=== PATIENT | male | born 1990 | race Caucasian/White ===

== ENCOUNTER 2022-12-20 16:29 | Observation (INO) ==
[2022-12-20 17:06] LABS: Basophils # (auto) 0.04 K/uL (0-0.2); Basophils % (auto) 0.5 %; Eosinophils # (auto) 0.14 K/uL (0-0.50); Eosinophils % (auto) 1.7 %; Hematocrit (blood only) 42.8 % (42.0-52.0); Hemoglobin 14.6 g/dl (14.0-18.0); Immature Granulocytes # (auto) 0.01 K/uL (0.01-0.20); Immature Granulocytes % (auto) 0.1 %; Lymphocytes # (auto) 1.24 K/uL (1.2-3.4); Lymphocytes % (auto) 15.2 %; Mean Corpuscular Hemoglobin 29.9 pg (25.0-34.0); Mean Corpuscular Hgb Conc 34.1 g/dL (32.0-36.0); Mean Corpuscular Volume 87.5 fL (80.0-100.0); Mean Platelet Volume 10.7 fL (9.4-12.4); Monocytes # (auto) 0.84 K/uL (0.11-0.59); Monocytes % (auto) 10.3 %; Neutrophils % (auto) 72.2 %; Platelet Count 239 K/uL (130-400); RDW Coefficient of Variation 13.2 % (11.5-14.5); RDW Standard Deviation 42.2 fL (36.4-46.3); Red Blood Count 4.89 M/uL (4.70-6.10); White Blood Count 8.17 K/ul (4.8-10.8)
[2022-12-20 17:22] LABS: Albumin Globulin Ratio 1.4 (0.9-2); Albumin Level 4.6 gm/dl (3.4-5.0); BUN Creatinine Ratio 15.9 (10-20); Calcium 9.5 mg/dl (8.6-10.3); Creatinine Clr Calc Pharmacy 113.1 ml/min; Est GFR (African American) 104.4 ml/min; Est GFR (Non-African American) 90.1 ml/min; Globulin 3.2 gm/dl (2.5-4.0); Potassium 3.7 mmol/L (3.5-5.1); Total Protein 7.8 gm/dl (6.0-8.3)
[2022-12-20 17:34] LABS: INR 1.1 (0.9-1.1); Partial Thromboplastin Ratio 1.1; Partial Thromboplastin Time 29.9 Seconds (21.0-31.0); Prothrombin Time 11.9 Seconds (9.0-12.0)
--- NOTE | 2022-12-20 17:40 | Emergency Department Note ---
Impression & Plan DVT (deep venous thrombosis) ADMIT ED Provider Note HPI: The patient is a 32-year-old gentleman who presents emergency department chief complaint of increasing left lower extremity pain today with ambulation. Patient was diagnosed with DVT yesterday after visiting the emergency department. Patient was started on Eliquis and states he was given a dose yesterday before he left the ER and took another dose again this morning. He is taking it as prescribed. Patient denies any chest pain or shortness of breath. States he gets a cramping and burning type pain radiating through his left leg mostly with ambulation. He states this acutely worsened about an hour prior to arrival to the ED. On arrival here to the ED the patient is hemodynamically stable, he is in no acute distress on my initial assessment. He has a palpable dorsalis pedis pulse in the left lower extremity. ROS: - Per HPI *Outpatient medications and allergy history reviewed. *Pertinent external medical records reviewed. PE: General: Alert HEENT: Normocephalic, trachea midline Eyes: Extraocular eye movement is intact, no scleral erythema Pulmonary: Clear to auscultation bilaterally, no wheezing Cardio: Regular rate and rhythm GI: Abdomen is soft to palpation : No suprapubic tenderness MSK: No evidence of trauma or malformation of the extremities, there is moderate swelling of the left lower extremity in comparison to the right, minimal associated erythema in the left lower extremity in comparison to the right, there is a palpable dorsalis pedis pulse on the left side and motor and sensory function is intact distally in the left foot Skin: No evidence of rash Neuro: Alert, no focal deficits 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 Medical Decision Making: Patient presented to the emergency department with worsening left lower extremity pain in the setting of recently diagnosed DVT of the left common femoral artery with some extension into the inferior vena cava. On arrival here to the ED the patient is hemodynamically stable but does complain of some worsening left lower extremity pain. Patient does have motor and sensory function intact distally in the left lower extremity on arrival. He denies any chest pain or shortness of breath. IV established, lab work obtained, patient was placed on coating mixer, ultra sound imaging from yesterday reviewed did show evidence of DVT that was occlusive in the left common femoral vein with extension into the inferior vena cava. Obtained today does not show any evidence of leukocytosis, hemoglobin is stable, CMP does not show any critical findings, troponin is negative, EKG shows normal sinus rhythm with a rate of 72. Given the extent of the clot burden on ultrasound imaging I did obtain CT angiography of the chest that does not show any evidence of acute PE. Case was discussed with on-call anticoagulation specialist, Dr. Long, recommends admission given clot burden for observation and possibly hematology consultation. Patient tells me that he did have recent travel to [place] from [place] several weeks ago but he got out of the car frequently and ambulated, unclear if this could have been a provoking event. I discussed the above findings with the on-call hospitalist, Dr. Chavez, recommended vascular surgery consultation be obtained to determine whether or not the patient may require an IVC filter. We do not have vascular surgery on-call this evening at this hospital therefore I did discuss the case with on-call vascular surgery at [facility], Dr. Pastor, who states the patient can remain here at [facility] and be anticoagulated routinely without indication for filter placement. On reevaluation patient is resting comfortably in bed, he is in agreement for admission. Patient was placed for admission in stable condition. Consultants: -Hospitalist service, Dr. Chavez -Anticoagulation specialist, Dr. Law -Vascular surgery at [facility], Dr. Pastor Disposition discussion held by myself with: Patient Diagnosis: 1. DVT of left lower extremity, occlusive, left common femoral vein, extending into inferior vena cava 2. Left lower extremity pain, acute Disposition: Admission Albino Ya DO Emergency Medicine Past Med/Surg History Social History Smoking Status: Never smoker Feels Safe at Home: Yes Allergies Allergies Allergy/AdvReac Type Severity Reaction Status Date / Time Penicillins Allergy Intermediate RASH/HIVES Verified 12/20/22 18:45 A CHILD ibuprofen AdvReac Unknown CONTRAINDICATED Verified 12/20/22 18:45 WITH ELIQUIS Home Meds Home Medications Medication Instructions Recorded Confirmed acetaminophen 500 mg tablet 1,000 mg PO DIRECTED PRN 12/20/22 12/20/22 (Tylenol Extra Strength) PAIN/FEVER Previous Rx's Medication Instructions Recorded apixaban 5 mg (74 tabs) tablets in See Rx Instructions .Route 12/19/22 a dose pack (Eliquis) .COMPLEX #74 ea Results & Data (ED) Vital Signs Vital Signs - 24 hr 12/20/22 16:33 12/20/22 17:31 12/20/22 18:00 Temperature 36.7 C Temperature Source Temporal Artery Scan Pulse Rate 89 75 Pulse Rate [Right Apical] 83 Pulse Rate from SpO2 Sensor 75 Respiratory Rate 18 14 14 Respiratory Effort / Characteristics Non-Labored Non-Labored Spontaneous Respiratory Depth Normal Normal Respiratory Pattern Regular Blood Pressure 131/81 124/80 Blood Pressure [Left Arm] 123/82 Blood Pressure Mean 97 94 Blood Pressure Mean [Left Arm] 95 Blood Pressure Position Sitting Pulse Oximetry 100 100 100 Oxygen Delivery Method Room Air Room Air Room Air Sepsis Recent Fever Within 48 Hours No Sepsis New/Unexplained Change in Mental Status No Sepsis Action Taken by Nursing No Action Required 12/20/22 18:30 12/20/22 19:02 12/20/22 19:30 Temperature Temperature Source Pulse Rate 84 75 85 Pulse Rate [Right Apical] Pulse Rate from SpO2 Sensor 83 86 Respiratory Rate 15 16 Respiratory Effort / Characteristics Respiratory Depth Respiratory Pattern Blood Pressure 129/76 131/76 126/68 Blood Pressure [Left Arm] Blood Pressure Mean 93 94 87 Blood Pressure Mean [Left Arm] Blood Pressure Position Pulse Oximetry 100 100 100 Oxygen Delivery Method Room Air Room Air Room Air Sepsis Recent Fever Within 48 Hours Sepsis New/Unexplained Change in Mental Status Sepsis Action Taken by Nursing 12/20/22 20:00 12/20/22 20:30 12/20/22 21:00 Temperature Temperature Source Pulse Rate 78 83 83 Pulse Rate [Right Apical] Pulse Rate from SpO2 Sensor 79 84 82 Respiratory Rate 14 17 16 Respiratory Effort / Characteristics Respiratory Depth Respiratory Pattern Blood Pressure 126/68 122/72 117/74 Blood Pressure [Left Arm] Blood Pressure Mean 87 88 88 Blood Pressure Mean [Left Arm] Blood Pressure Position Pulse Oximetry 99 99 100 Oxygen Delivery Method Room Air Room Air Room Air Sepsis Recent Fever Within 48 Hours Sepsis New/Unexplained Change in Mental Status Sepsis Action Taken by Nursing 12/20/22 21:30 12/20/22 17:41 12/20/22 21:40 Temperature Temperature Source Pulse Rate 93 H 72 88 Pulse Rate [Right Apical] Pulse Rate from SpO2 Sensor 96 H Respiratory Rate 20 Respiratory Effort / Characteristics Respiratory Depth Respiratory Pattern Blood Pressure 131/76 Blood Pressure [Left Arm] Blood Pressure Mean 94 Blood Pressure Mean [Left Arm] Blood Pressure Position Pulse Oximetry 100 Oxygen Delivery Method Room Air Sepsis Recent Fever Within 48 Hours Sepsis New/Unexplained Change in Mental Status Sepsis Action Taken by Nursing 12/20/22 22:00 Temperature Temperature Source Pulse Rate 85 Pulse Rate [Right Apical] Pulse Rate from SpO2 Sensor 86 Respiratory Rate 20 Respiratory Effort / Characteristics Respiratory Depth Respiratory Pattern Blood Pressure 115/79 Blood Pressure [Left Arm] Blood Pressure Mean 91 Blood Pressure Mean [Left Arm] Blood Pressure Position Pulse Oximetry 98 Oxygen Delivery Method Room Air Sepsis Recent Fever Within 48 Hours Sepsis New/Unexplained Change in Mental Status Sepsis Action Taken by Nursing Laboratory Data 12/20/22 16:43 12/20/22 16:43 Lab Results 12/20/22 12/20/22 12/20/22 Range/Units 16:43 16:43 16:43 WBC 8.17 (4.8-10.8) K/ul RBC 4.89 (4.70-6.10) M/uL Hgb 14.6 (14.0-18.0) g/dl Hct 42.8 (42.0-52.0) % MCV 87.5 (80.0-100.0) fL MCH 29.9 (25.0-34.0) pg MCHC 34.1 (32.0-36.0) g/dL RDW Std Deviation 42.2 (36.4-46.3) fL RDW Coeff of Myles 13.2 (11.5-14.5) % Plt Count 239 (130-400) K/uL MPV 10.7 (9.4-12.4) fL Immature Gran % (Auto) 0.1 % Neut % (Auto) 72.2 % Lymph % (Auto) 15.2 % [place] % (Auto) 10.3 % Eos % (Auto) 1.7 % Baso % (Auto) 0.5 % Neut # (Auto) 5.90 (1.40-6.50) K/uL Lymph # (Auto) 1.24 (1.2-3.4) K/uL [place] # (Auto) 0.84 H (0.11-0.59) K/uL Eos # (Auto) 0.14 (0-0.50) K/uL Baso # (Auto) 0.04 (0-0.2) K/uL Immature Gran # (Auto) 0.01 (0.01-0.20) K/uL PT 11.9 (9.0-12.0) Seconds INR 1.1 (0.9-1.1) APTT 29.9 (21.0-31.0) Seconds PTT Ratio 1.1 Sodium 137 (136-145) mmol/L Potassium 3.7 (3.5-5.1) mmol/L Chloride 100 (98-107) mmol/L Carbon Dioxide 25 (21-32) mmol/L Anion Gap 12 H (3-11) BUN 17 (6-23) mg/dl Creatinine 1.07 (0.6-1.4) mg/dl Est Cr Clr Drug Dosing 113.1 ml/min Est GFR ( Amer) 104.4 ml/min Est GFR (Non-Af Amer) 90.1 ml/min BUN/Creatinine Ratio 15.9 (10-20) Glucose 97 (70-99(Fasting)) mg/dl Calcium 9.5 (8.6-10.3) mg/dl Total Bilirubin 1.0 (0.2-1.0) mg/dl AST 21 (13-39) U/L ALT 25 (7-52) U/L Alkaline Phosphatase 103 (34-104) U/L Troponin I High Sens 2.8 (0-20) pg/ml Total Protein 7.8 (6.0-8.3) gm/dl Albumin 4.6 (3.4-5.0) gm/dl Globulin 3.2 (2.5-4.0) gm/dl Albumin/Globulin Ratio 1.4 (0.9-2) SARS-CoV-2, RNA, NAAT (NEGATIVE) 12/20/22 Range/Units 19:04 WBC (4.8-10.8) K/ul RBC (4.70-6.10) M/uL Hgb (14.0-18.0) g/dl Hct (42.0-52.0) % MCV (80.0-100.0) fL MCH (25.0-34.0) pg MCHC (32.0-36.0) g/dL RDW Std Deviation (36.4-46.3) fL RDW Coeff of Myles (11.5-14.5) % Plt Count (130-400) K/uL MPV (9.4-12.4) fL Immature Gran % (Auto) % Neut % (Auto) % Lymph % (Auto) % [place] % (Auto) % Eos % (Auto) % Baso % (Auto) % Neut # (Auto) (1.40-6.50) K/uL Lymph # (Auto) (1.2-3.4) K/uL [place] # (Auto) (0.11-0.59) K/uL Eos # (Auto) (0-0.50) K/uL Baso # (Auto) (0-0.2) K/uL Immature Gran # (Auto) (0.01-0.20) K/uL PT (9.0-12.0) Seconds INR (0.9-1.1) APTT (21.0-31.0) Seconds PTT Ratio Sodium (136-145) mmol/L Potassium (3.5-5.1) mmol/L Chloride (98-107) mmol/L Carbon Dioxide (21-32) mmol/L Anion Gap (3-11) BUN (6-23) mg/dl Creatinine (0.6-1.4) mg/dl Est Cr Clr Drug Dosing ml/min Est GFR ( Amer) ml/min Est GFR (Non-Af Amer) ml/min BUN/Creatinine Ratio (10-20) Glucose (70-99(Fasting)) mg/dl Calcium (8.6-10.3) mg/dl Total Bilirubin (0.2-1.0) mg/dl AST (13-39) U/L ALT (7-52) U/L Alkaline Phosphatase (34-104) U/L Troponin I High Sens (0-20) pg/ml Total Protein (6.0-8.3) gm/dl Albumin (3.4-5.0) gm/dl Globulin (2.5-4.0) gm/dl Albumin/Globulin Ratio (0.9-2) SARS-CoV-2, RNA, NAAT NEGATIVE (NEGATIVE) Administered Medications Apixaban (Apixaban 5 Mg Tablet) 10 mg PO BID IGOR Stop: 12/27/22 09:01 Last Admin: 12/20/22 21:57 Dose: 10 mg Documented By: JASBIR Discontinued Medications Sodium Chloride (Nss 1000ml) 1,000 mls @ 999 mls/hr IV .[id number] ONE Stop: 12/20/22 18:49 Last Infusion: 12/20/22 19:27 Dose: 0 mls/hr Documented By: Admin: 12/20/22 18:02 Dose: 999 mls/hr Documented By: JASBIR Ioversol (Optiray 320 500ml) 110 ml IV ONCE ONE Stop: 12/20/22 18:23 Last Admin: 12/20/22 18:25 Dose: 110 ml Documented By: DEMI Imaging Data Radiologist's Impression: Chest CTA 12/20/22 17:49 CT ANGIOGRAPHY OF THE CHEST, PULMONARY EMBOLUS PROTOCOL CLINICAL HISTORY: DVT. COMPARISON STUDY: No previous studies for comparison. TECHNIQUE: Following IV administration of 110 mL of Optiray, helical axial images of the chest were obtained utilizing the pulmonary embolus protocol. Maximal intensity projections and sagittal and coronal reformats were viewed on an independent 3D workstation. IV contrast was administered without complication. Automated exposure control was utilized for the study. A dose lowering technique was utilized adhering to the principles of ALARA. CT DOSE: 372.06 mGy.cm FINDINGS: No pulmonary emboli are identified. There is no thoracic aortic dissection. The size of the heart is normal. There is no pericardial effusion. There is no thoracic lymphadenopathy. The azygos and hemiazygos veins are dilated. The intrahepatic IVC appears diminutive although suboptimally assessed on this chest CT. There is no pneumothorax or pleural effusion. There is no consolidation to suggest pneumonia. Left adrenal calcifications are noted. Moderate to marked atrophy of visualized portions of the left kidney is noted. There are suspected compensatory hypertrophy of the right kidney. IMPRESSION: 1. No pulmonary emboli identified. 2. No acute intrathoracic findings. 3. Dilated azygos and hemiazygos veins with diminutive intrahepatic IVC. This may reflect azygos continuation of the IVC. 4. Moderate to severe atrophy of visualized portions of the left kidney. Compensatory hypertrophy of the right kidney. ACT 112: Negative or not required by law. Electronically signed by: Macario Cain M.D. 12/20/2022 6:49 PM Discharge Plan Visit Data Chief Complaint: Swelling/Edema to Extremity Stated Complaint: BLOOD CLOT,SWELLING LEFT LEG ED Provider: Albino Ya Discharge Problem: DVT (deep venous thrombosis) Discharge Instructions Interventions: ED Discharge Assessment Last Done: 12/20/22 22:25 Forms Stand Alone Forms: [facility] [place] Social Prescriptions Prescriptions: No Action acetaminophen [Tylenol Extra Strength] 500 mg Tablet 1,000 mg PO DIRECTED PRN (Reason: PAIN/FEVER) Eliquis 5 mg (74 tabs) tablets,dose pack See Rx Instructions .ROUTE .COMPLEX Qty: 74 0RF Rx Instructions: STARTED 12/19/22--Take 10 mg twice daily for the first 7 days and then 5 mg twice daily after that. Referrals Referrals: PCP,NO [Primary Care Provider] - DVT (deep venous thrombosis) Qualifiers: DVT location: lower extremity Affected thrombotic vein of extremity: femoral Chronicity: acute Laterality: left Qualified Code(s): I82.412 - Acute embolism and thrombosis of left femoral vein
[2022-12-20] MEDS ORDERED: SODIUM CHLORIDE 0.9% 1000ML 1,000 ML IV ONE (17:49)
[2022-12-20 18:06] LABS: Troponin I High Sensitivity 2.8 pg/ml (0-20)
[2022-12-20] MEDS ORDERED: OPTIRAY 320 500ml IV ONE (18:22)
--- NOTE | 2022-12-20 18:52 | CT Scan Report ---
CT ANGIOGRAPHY OF THE CHEST, PULMONARY EMBOLUS PROTOCOL CLINICAL HISTORY: DVT. COMPARISON STUDY: No previous studies for comparison. TECHNIQUE: Following IV administration of 110 mL of Optiray, helical axial images of the chest were o btained utilizing the pulmonary embolus protocol. Maximal intensity projections and sagittal and cor onal reformats were viewed on an independent 3D workstation. IV contrast was administered without co mplication. Automated exposure control was utilized for the study. A dose lowering technique was ut ilized adhering to the principles of ALARA. CT DOSE: 372.06 mGy.cm FINDINGS: No pulmonary emboli are identified. There is no thoracic aortic dissection. The size of th e heart is normal. There is no pericardial effusion. There is no thoracic lymphadenopathy. The azygos and hemiazygos veins are dilated. The intrahepatic IVC appears diminutive although suboptimally asse ssed on this chest CT. There is no pneumothorax or pleural effusion. There is no consolidation to sug gest pneumonia. Left adrenal calcifications are noted. Moderate to marked atrophy of visualized porti ons of the left kidney is noted. There are suspected compensatory hypertrophy of the right kidney. IMPRESSION: 1. No pulmonary emboli identified. 2. No acute intrathoracic findings. 3. Dilated azygos and hemiazygos veins with diminutive intrahepatic IVC. This may reflect azygos cont inuation of the IVC. 4. Moderate to severe atrophy of visualized portions of the left kidney. Compensatory hypertrophy of the right kidney. ACT 112: Negative or not required by law. Electronically signed by: Macario Cain M.D. 12/20/2022 6:49 PM
[2022-12-20] MEDS: APIXABAN 5 MG TABLET PO SCH (21:57)
[2022-12-20] MEDS ORDERED: ONDANSETRON INJ 2 MG/ML 2 ML VIAL IV PRN (23:40)
[2022-12-20] MEDS ORDERED: ACETAMINOPHEN 325 MG TAB PO PRN (23:40)
--- NOTE | 2022-12-21 01:42 | History & Physical Report ---
Date of Service December 20, 2022 Assessment & Plan (1) Deep vein thrombosis, lower left extremity: Plan DVT left lower extremity- Order hypercoagulable work-up Continue apixaban 10 mg p.o. twice daily, day number 2 out of 7, then 5 mg p.o. twice daily Not unexpected that he would have some worsening swelling and pain within 24 hours of his original diagnosis Admit to monitored bed Patient may need to stay relatively off his feet for 24 to 48 hours Will need to be careful about a quick return to [place], as he was expecting to leave tomorrow for the return trip History of Present Illness Chief Complaint: The patient presents to the emergency department with complaint of worsening left lower extremity swelling and pain after having been seen in the emergency department 24 hours ago, diagnosed with a left lower extremity DVT, and placed on apixaban, which he has taken 2 doses so far Primary Care Provider: NO PCP The patient is a 31-year-old male with no significant past medical history, who traveled from [place] about a week ago, and yesterday started noticing left calf pain and swelling. He was seen in the emergency department yesterday, had a lower extremity Doppler which was suggestive of extensive DVT including into the left common femoral vein, left iliac vein and inferior vena cava. He was started on Eliquis 10 mg twice daily, which took 1 dose last evening and 1 dose this morning. He presented to the emergency department due to worsening symptoms as noted above. He did have a CT angio which was negative for PE. He denies any family history of venous thromboembolism, and has not had any previous instances himself. Allergies Allergy/AdvReac Type Severity Reaction Status Date / Time Penicillins Allergy Intermediate RASH/HIVES Verified 12/20/22 18:45 A CHILD ibuprofen AdvReac Unknown CONTRAINDICATED Verified 12/20/22 18:45 WITH ELIQUIS Home Medications Medication Instructions Recorded Confirmed Type apixaban 5 mg (74 tabs) tablets in See Rx Instructions .Route 12/19/22 12/20/22 Rx a dose pack (Eliquis) .COMPLEX #74 ea acetaminophen 500 mg tablet 1,000 mg PO DIRECTED PRN 12/20/22 12/20/22 History (Tylenol Extra Strength) PAIN/FEVER Past Med/Surg History Social History Smoking Status: Never smoker Second Hand Exposure: No; Do You Dip or Chew Tobacco: No; Hx Alcohol Use: Yes Alcohol type: beer and hard liquor Hx Substance Use: No Preferred Language: Grenadian Communication Ability: Effective 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 Beliefs That Will Affect Care: None Current Living Situation: Spouse Other Information That Helps Us Care for You: No Feels Safe at Home: Yes Safety Concerns: Feels Safe At This Time Assistive Devices: Glasses Review of Systems Review of Systems: The patient denies chest pain, palpitations, shortness of breath, dyspnea on exertion, cough, sore throat, fevers, chills, sweats, weight change, fatigue, nausea, vomiting, diarrhea , constipation, abdominal pain, pelvic pain, blood in urine or stool, dysuria, urinary frequency or urgency, lightheadedness, dizziness, headache, memory loss, loss of consciousness, rash, abnormal bruising or bleeding, imbalance, focal or generalized weakness, numbness or tingling in arms or right leg, generalized arthralgias or myalgias, back or neck pain, or night sweats. The review of systems is otherwise negative other than for that already noted above, and at least 10 systems have been reviewed. Physical Exam Physical Exam: The patient is awake, alert and oriented 3, well developed and well nourished, normocephalic and atraumatic, lying in bed and in no acute distress. HEENT--PERRL, EOMI, mucous membranes and oropharynx normal. Neck--supple. No JVD. No bruits. Thyroid normal, trachea midline, no adenopathy. Heart--normal S1 and S2. No murmurs, rubs or gallops. Lungs--clear bilaterally, no respiratory distress, no accessory muscle use. Abdomen--normal bowel sounds and soft. Nontender. Nondistended, no hernias or masses, no organomegaly. Extremities--left lower extremity with trace pitting edema Dermatologic--normal skin turgor, normal color, no abnormal lymph nodes, no rash. Neurologic--cranial nerves II through XII grossly intact. Rheumatologic--normal range of motion. Psychiatric--normal affect. Results & Data Results & Data Vital Signs (Past 12 Hours) Vital Signs Temp Pulse Pulse Resp BP BP Pulse Ox 12/20/22 21:40 88 12/20/22 17:41 72 12/20/22 21:30 93 H 20 131/76 100 12/20/22 21:00 83 16 117/74 100 12/20/22 20:30 83 17 122/72 99 12/20/22 20:00 78 14 126/68 99 12/20/22 19:30 85 16 126/68 100 12/20/22 19:02 75 131/76 100 12/20/22 18:30 84 15 129/76 100 12/20/22 18:00 75 14 124/80 100 12/20/22 17:31 83 14 123/82 100 12/20/22 16:33 36.7 C 89 18 131/81 100 O2 Del Method 12/20/22 21:40 12/20/22 17:41 12/20/22 21:30 Room Air 12/20/22 21:00 Room Air 12/20/22 20:30 Room Air 12/20/22 20:00 Room Air 12/20/22 19:30 Room Air 12/20/22 19:02 Room Air 12/20/22 18:30 Room Air 12/20/22 18:00 Room Air 12/20/22 17:31 Room Air 12/20/22 16:33 Room Air Laboratory Results Laboratory Results WBC 8.17 K/ul (4.8-10.8) 12/20/22 16:43 RBC 4.89 M/uL (4.70-6.10) 12/20/22 16:43 Hgb 14.6 g/dl (14.0-18.0) 12/20/22 16:43 Hct 42.8 % (42.0-52.0) 12/20/22 16:43 MCV 87.5 fL (80.0-100.0) 12/20/22 16:43 MCH 29.9 pg (25.0-34.0) 12/20/22 16:43 MCHC 34.1 g/dL (32.0-36.0) 12/20/22 16:43 RDW Std Deviation 42.2 fL (36.4-46.3) 12/20/22 16:43 RDW Coeff of Myles 13.2 % (11.5-14.5) 12/20/22 16:43 Plt Count 239 K/uL (130-400) 12/20/22 16:43 MPV 10.7 fL (9.4-12.4) 12/20/22 16:43 Immature Gran % (Auto) 0.1 % 12/20/22 16:43 Neut % (Auto) 72.2 % 12/20/22 16:43 Lymph % (Auto) 15.2 % 12/20/22 16:43 Amite % (Auto) 10.3 % 12/20/22 16:43 Eos % (Auto) 1.7 % 12/20/22 16:43 Baso % (Auto) 0.5 % 12/20/22 16:43 Neut # (Auto) 5.90 K/uL (1.40-6.50) 12/20/22 16:43 Lymph # (Auto) 1.24 K/uL (1.2-3.4) 12/20/22 16:43 Amite # (Auto) 0.84 K/uL (0.11-0.59) H 12/20/22 16:43 Eos # (Auto) 0.14 K/uL (0-0.50) 12/20/22 16:43 Baso # (Auto) 0.04 K/uL (0-0.2) 12/20/22 16:43 Immature Gran # (Auto) 0.01 K/uL (0.01-0.20) 12/20/22 16:43 PT 11.9 Seconds (9.0-12.0) 12/20/22 16:43 INR 1.1 (0.9-1.1) 12/20/22 16:43 APTT 29.9 Seconds (21.0-31.0) 12/20/22 16:43 PTT Ratio 1.1 12/20/22 16:43 Sodium 137 mmol/L (136-145) 12/20/22 16:43 Potassium 3.7 mmol/L (3.5-5.1) 12/20/22 16:43 Chloride 100 mmol/L (98-107) 12/20/22 16:43 Carbon Dioxide 25 mmol/L (21-32) 12/20/22 16:43 Anion Gap 12 (3-11) H 12/20/22 16:43 BUN 17 mg/dl (6-23) 12/20/22 16:43 Creatinine 1.07 mg/dl (0.6-1.4) 12/20/22 16:43 Est Cr Clr Drug Dosing 113.1 ml/min 12/20/22 16:43 Est GFR ( Amer) 104.4 ml/min 12/20/22 16:43 Est GFR (Non-Af Amer) 90.1 ml/min 12/20/22 16:43 BUN/Creatinine Ratio 15.9 (10-20) 12/20/22 16:43 Glucose 97 mg/dl (70-99(Fasting)) 12/20/22 16:43 Calcium 9.5 mg/dl (8.6-10.3) 12/20/22 16:43 Total Bilirubin 1.0 mg/dl (0.2-1.0) 12/20/22 16:43 AST 21 U/L (13-39) 12/20/22 16:43 ALT 25 U/L (7-52) 12/20/22 16:43 Alkaline Phosphatase 103 U/L (34-104) 12/20/22 16:43 Troponin I High Sens 2.8 pg/ml (0-20) 12/20/22 16:43 Total Protein 7.8 gm/dl (6.0-8.3) 12/20/22 16:43 Albumin 4.6 gm/dl (3.4-5.0) 12/20/22 16:43 Globulin 3.2 gm/dl (2.5-4.0) 12/20/22 16:43 Albumin/Globulin Ratio 1.4 (0.9-2) 12/20/22 16:43 SARS-CoV-2, RNA, NAAT NEGATIVE (NEGATIVE) 12/20/22 19:04 Impressions Chest CTA 12/20/22 17:49 CT ANGIOGRAPHY OF THE CHEST, PULMONARY EMBOLUS PROTOCOL CLINICAL HISTORY: DVT. COMPARISON STUDY: No previous studies for comparison. TECHNIQUE: Following IV administration of 110 mL of Optiray, helical axial images of the chest were obtained utilizing the pulmonary embolus protocol. Maximal intensity projections and sagittal and coronal reformats were viewed on an independent 3D workstation. IV contrast was administered without complication. Automated exposure control was utilized for the study. A dose lowering technique was utilized adhering to the principles of ALARA. CT DOSE: 372.06 mGy.cm FINDINGS: No pulmonary emboli are identified. There is no thoracic aortic dissection. The size of the heart is normal. There is no pericardial effusion. There is no thoracic lymphadenopathy. The azygos and hemiazygos veins are dilated. The intrahepatic IVC appears diminutive although suboptimally assessed on this chest CT. There is no pneumothorax or pleural effusion. There is no consolidation to suggest pneumonia. Left adrenal calcifications are noted. Moderate to marked atrophy of visualized portions of the left kidney is noted. There are suspected compensatory hypertrophy of the right kidney. IMPRESSION: 1. No pulmonary emboli identified. 2. No acute intrathoracic findings. 3. Dilated azygos and hemiazygos veins with diminutive intrahepatic IVC. This may reflect azygos continuation of the IVC. 4. Moderate to severe atrophy of visualized portions of the left kidney. Compensatory hypertrophy of the right kidney. ACT 112: Negative or not required by law. Electronically signed by: Macraio Cain M.D. 12/20/2022 6:49 PM Code Status & VTE Plan Code Status Full code VTE Prophylaxis Plan VTE Prophylaxis will be ordered: Yes PG Care Time/CCT Total # of Minutes Spent Total Time Spent with Patient: Total time spent is greater than 50% in coordination of care (as documented) at patient's floor/unit and/or counseling patient: Coding Level of Care Code 50164 INT INP/OBS CARE 3/75MIN Diagnoses Deep vein thrombosis, lower left extremity I82.402
[2022-12-21 07:20] LABS: Albumin Level 3.8 gm/dl (3.4-5.0); BUN Creatinine Ratio 16.2 (10-20); Calcium 8.9 mg/dl (8.6-10.3); Creatinine Clr Calc Pharmacy 115.3 ml/min; Est GFR (African American) 106.8 ml/min; Est GFR (Non-African American) 92.2 ml/min; Magnesium 2.2 mg/dl (1.7-2.4); Phosphorus 4.2 mg/dl (2.5-4.9); Potassium 3.7 mmol/L (3.5-5.1)
[2022-12-21 07:29] LABS: Basophils # (auto) 0.03 K/uL (0-0.2); Basophils % (auto) 0.4 %; Eosinophils # (auto) 0.21 K/uL (0-0.50); Eosinophils % (auto) 2.8 %; Hematocrit (blood only) 38.1 % (42.0-52.0); Hemoglobin 12.6 g/dl (14.0-18.0); INR 1.1 (0.9-1.1); Immature Granulocytes # (auto) 0.02 K/uL (0.01-0.20); Immature Granulocytes % (auto) 0.3 %; Lymphocytes # (auto) 1.17 K/uL (1.2-3.4); Lymphocytes % (auto) 15.4 %; Mean Corpuscular Hemoglobin 29.4 pg (25.0-34.0); Mean Corpuscular Hgb Conc 33.1 g/dL (32.0-36.0); Mean Corpuscular Volume 88.8 fL (80.0-100.0); Monocytes # (auto) 0.88 K/uL (0.11-0.59); Monocytes % (auto) 11.6 %; Neutrophils # (auto) 5.27 K/uL (1.40-6.50); Neutrophils % (auto) 69.5 %; Partial Thromboplastin Ratio 1.1; Partial Thromboplastin Time 32.3 Seconds (21.0-31.0); Platelet Count 212 K/uL (130-400); Prothrombin Time 12.1 Seconds (9.0-12.0); RDW Coefficient of Variation 13.2 % (11.5-14.5); RDW Standard Deviation 43.3 fL (36.4-46.3); Red Blood Count 4.29 M/uL (4.70-6.10); White Blood Count 7.58 K/ul (4.8-10.8)
[2022-12-21] MEDS: APIXABAN 5 MG TABLET PO SCH (09:54)
--- NOTE | 2022-12-21 13:26 | Discharge Summary ---
Date of Service December 21, 2022 Admission HPI Per Admitting Provider The patient is a 31-year-old male with no significant past medical history, who traveled from [place] about a week ago, and yesterday started noticing left calf pain and swelling. He was seen in the emergency department yesterday, had a lower extremity Doppler which was suggestive of extensive DVT including into the left common femoral vein, left iliac vein and inferior vena cava. He was started on Eliquis 10 mg twice daily, which took 1 dose last evening and 1 dose this morning. He presented to the emergency department due to worsening symptoms as noted above. He did have a CT angio which was negative for PE. He denies any family history of venous thromboembolism, and has not had any previous instances himself. 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 COMPARISON STUDY: No previous studies for comparison. TECHNIQUE: Following IV administration of 110 mL of Optiray, helical axial images of the chest were obtained utilizing the pulmonary embolus protocol. Maximal intensity projections and sagittal and coronal reformats were viewed on an independent 3D workstation. IV contrast was administered without complication. Automated exposure control was utilized for the study. A dose lowering technique was utilized adhering to the principles of ALARA. CT DOSE: 372.06 mGy.cm FINDINGS: No pulmonary emboli are identified. There is no thoracic aortic dissection. The size of the heart is normal. There is no pericardial effusion. There is no thoracic lymphadenopathy. The azygos and hemiazygos veins are dilated. The intrahepatic IVC appears diminutive although suboptimally assessed on this chest CT. There is no pneumothorax or pleural effusion. There is no consolidation to suggest pneumonia. Left adrenal calcifications are noted. Moderate to marked atrophy of visualized portions of the left kidney is noted. There are suspected compensatory hypertrophy of the right kidney. IMPRESSION: 1. No pulmonary emboli identified. 2. No acute intrathoracic findings. 3. Dilated azygos and hemiazygos veins with diminutive intrahepatic IVC. This may reflect azygos continuation of the IVC. 4. Moderate to severe atrophy of visualized portions of the left kidney. Compensatory hypertrophy of the right kidney. ACT 112: Negative or not required by law. Electronically signed by: Macario Cain M.D. 12/20/2022 6:49 PM 12/20/22 17:49 CT angio chest PE protocol Stat Hospital Course (1) Deep vein thrombosis, lower left extremity: Plan Patient was admitted with pain and swelling from the previously diagnosed left lower extremity DVT. CT angiography revealed dilated azygous and hemiazygos veins with a diminutive intrahepatic inferior vena cava. This may reflect azygous continuation of the IVC. There is no pulmonary embolism identified. There is noted to be moderate to severe atrophy of the visualized portions of the left kidney with compensatory hypertrophy of the right kidney Patient did well was educated about some of his anatomical changes was notified that his hypercoagulable studies were sent out and was recommended to follow-up with hematology in the [facility] area where he lives Patient was given a short supply of some pain medication had a thigh-high JOSELYN hose applied by nursing was discharged home in the care of his family Total Time Total Time Spent Total Time Spent (In Minutes): It required greater than 30 minutes to prepare this patient for discharge with extensive bedside counseling Discharge Plan Discharge Items Patient Disposition: Home - Self-Care Reason For Visit: LLE DVT WITH WORSENING EDEMA Discharge Diagnosis: LLE DVT 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 Anticoagulants will thin your blood to help prevent new clots. * You should take her medication exactly as directed. * Never skip a dose. * Never take a double dose. If you miss a dose, take it as soon as you remember. Call your Primary Care doctor if you experience any of the following: * Swelling or Pain in your leg * Sudden, continuous pain deep in a muscle * Pain that worsens when you are active or when you stand still for a long time * Chest Pain * Sudden Shortness of Breath * Rapid or pounding heart beat * Fainting * Dizziness * Cough with blood or bloody sputum * Sweating more than normal * Bruises * Heavy or uncontrolled bleeding * Blood in your urine, stool or vomit * Black or tarry stools Caring for Your Self at Home: * Avoid sitting, standing or lying down for long periods without moving your legs and feet * When traveling by car, stop to get out and move around at least once every 3 hours * On long airplane, train or bus rides, get up and move around when possible * If you can't get up, wiggle your toes and tighten your calves to keep your blood moving Follow Up: It is important for you to keep your follow up appointments with your medical provider. Addtl Hemodialysis Patient Care Specialist Provider Instructions: Please follow up with a plastics design engineer in your home area please wear a compression stocking as much as comfortable Pending Studies at Discharge: Yes (send out genetic testing for blood clotting) Stand-Alone Forms: My [facility] [place], Smoking Cessation Medications and DC Order Prescriptions: New oxycodone 5 mg capsule 5 - 10 mg PO Q8H Qty: 20 0RF Continued acetaminophen [Tylenol Extra Strength] 500 mg Tablet 1,000 mg PO DIRECTED PRN (Reason: PAIN/FEVER) Eliquis 5 mg (74 tabs) tablets,dose pack See Rx Instructions .ROUTE .COMPLEX Qty: 74 0RF Rx Instructions: STARTED 12/19/22--Take 10 mg twice daily for the first 7 days and then 5 mg twice daily after that. Discharge Orders: Discharge Order (Routine); Ordered 12/21/22 Ordered By: Manish Kline Admission Data Admit Date/Time: 12/20/22 21:42 Attending Provider: Manish Kline Admit Provider: Onel Moser Primary Care Provider: PCP,NO Other Providers: Onel Moser Coding Level of Care Code 12007 INP/OBS DISCH >30 MIN Diagnoses Deep vein thrombosis, lower left extremity I82.402
--- NOTE | 2022-12-23 08:31 | Electrocardiogram Report ---
Test Reason : Blood Pressure : / mmHG Vent. Rate : 072 BPM Atrial Rate : 072 BPM P-R Int : 146 ms QRS Dur : 092 ms QT Int : 392 ms P-R-T Axes : 003 062 042 degrees QTc Int : 429 ms Normal sinus rhythm Normal ECG When compared with ECG of 19-DEC-2022 17:42, No significant change was found Confirmed by Austin Bearden ([id number]) on 12/23/2022 8:30:41 AM Referred By: REFERRED SELF Confirmed By:Austin Bearden
== END 2022-12-21 15:00 | disposition home or self-care (01) ==
LOC: 2N 16:29 → ED 16:29 → SUATTDRO 21:42 → 2N 22:25